=== PATIENT | female | born 2000 | race Caucasian/White ===

== ENCOUNTER 2021-05-24 14:39 | Emergency (ER) | payer OTHER ==
[~2021-05-24] VITALS: Ht 165.1 cm; Wt 120.0 kg
--- NOTE | 2021-05-24 14:53 | PHYS DOC ---
Past History Smoking: Non-smoker Alcohol Use: None Drug Use: None General Adult EDM: Chief Complaint: RECTAL BLEED HPI: HPI: Patient is a 21-year-old female with report of rectal bleeding since January 2021. She has already seen her primary care physician, she had outpatient labs as recently as 5 days ago, she has a normal hemoglobin. She is been referred to outpatient GI, she is supposed to see them tomorrow. She reportedly has not had any imaging studies. She reports history of intermittent constipation and straining, though she had a solid, formed bowel movement earlier today. She notices that she has bright red blood per rectum with wiping and after having a bowel movement. She ported an episode of dizziness earlier today, so her mother thought she should be evaluated. She denies any heavier or worsening bleeding. She denies vaginal bleeding. LMP last week. She describes generalized mid abdominal discomfort. She reports mild nausea, no vomiting. No change in appe tite. She reports chronic urinary urgency and frequency, and she has reportedly been referred to urology for this. She denies dysuria. No acute urinary changes reported today. She reports that she had a cyst removed from her right tube a few years ago. Her primary care doctor has performed a digital rectal exam, could not reportedly feel any mass or hemorrhoid, no reported external hemorrhoids. Review of Systems: Review of Systems: Constitutional: Denies fever or chills Eyes: Denies change in visual acuity HENT: Denies nasal congestion or sore throat Respiratory: Denies cough or shortness of breath Cardiovascular: Denies chest pain or edema GI: Generalized mid abdominal pain. Nausea, no vomiting. Bloody stools. Hi story of constipation, none currently. No diarrhea reported. : Denies dysuria, reports chronic urinary urgency and frequency. No gross hematuria. Musculoskeletal: Denies back pain or joint pain Integument: Denies rash Neurologic: Denies headache, focal weakness or sensory changes Endocrine: Denies polyuria or polydipsia Lymphatic: Denies swollen glands Psychiatric: Anxiety Allergies: Allergies: Allergies Coded Allergies Type Severity Reaction Last Updated Verified No Known Drug Allergies 05/24/21 No Physical Exam: PE: Constitutional: Well developed, well nourished, no acute distress, non-toxic appearance. [] HENT: Normocephalic, atraumatic Eyes: Conjunctiva normal, no discharge. No scleral icterus. Neck: Normal range of motion, no tenderness, supple, no stridor. [] Cardiovascular:Heart rate regular rhythm, +2 radial and +2 posterior tibial pulses bilateral Lungs & Thorax: Bilateral breath sounds clear to auscultation [] Abdomen: Abdomen is obese, soft, nondistended, I am unable to elicit any tenderness to palpation. The patient describes periumbilical tenderness with my exam, though no guarding, rebound, rigidity is noted. No CVA tenderness. No flank abdominal ecchymoses. No palpable masses organomegaly. Skin: Warm, dry, no erythema, no rash. No jaundice. Back: No tenderness, no CVA tenderness. [] Extremities: No tenderness, no cyanosis, no clubbing, ROM intact, no edema. [] Neurologic: Alert and oriented X 3, normal motor function, normal sensory function, no focal deficits noted. [] Psychologic: Shows, cooperative. EKG: EKG: [] Radiology/Procedures: Radiology/Procedures: IMAGING REPORT Signed PATIENT: ANIYA CANTRELL ACCOUNT: [id number] : 2000 LOCATION: ER AGE: 21 SEX: F EXAM STATUS: REG ER ORD. PHYSICIAN: VALERIE EPPERSON DO REASON: LOW ABD AND PELVIC PAIN,TENDER TO TOUCH, RECTAL BLEED-75 OMNI 300 PROCEDURE: CT ABD PELV W/ IV CONTRST ONLY Examination: CT of the abdomen pelvis with IV contrast HISTORY: History of lower abdominal pain, rectal bleeding COMPARISON: None available TECHNIQUE: Axial CT images of abdomen is performed with IV contrast. Coronal and sagittal reformats are performed Exposure: One or more of the following individualized dose reduction techniques were utilized for this examination: 1. Automated exposure control 2. Adjustment of the mA and/or kV according to patient size 3. Use of iterative reconstruction technique FINDINGS: The bibasilar lungs are clear. No evidence of free air identified in the abdomen The liver, spleen, adrenals grossly appears unremarkable. The gallbladder is mildly distended. The stomach is mildly distended. The visualized pancreas grossly appears unremarkable. The small bowel is nondilated. Mild fat stranding identified about the small bowel loops in the lower abdomen. The appendix is normal. Mild thickened appearance of the wall of the transverse colon with minimal surrounding fat stranding. Urinary bladder is mildly distended. The bilateral kidneys enhance symmetrically No evidence of lytic bony destructive lesion IMPRESSION: 1. Mild thickened appearance of the wall of the transverse colon with minimal surrounding fat stranding could be due to nondistention or mild colitis. 2. Mild fat stranding identified about the small bowel loops in the lower abdomen could be due to nondistention or mild enteritis. Electronically signed by: Hari Garcia MD (05/24/2021 3:43 PM) [id number] DICTATED AND SIGNED BY: HARI GARCIA MD DATE: 05/24/21 1539 CC: VALERIE EPPERSON DO; PAIGE CAMARA N ~ Heart Score: C/O Chest Pain: No Risk Factors: Risk Factors: DM, Current or recent (<one month) smoker, HTN, HLP, family history of CAD, obesity. Risk Scores: Score 0 - 3: 2.5% MACE over next 6 weeks - Discharge Home Score 4 - 6: 20.3% MACE over next 6 weeks - Admit for Clinical Observation Score 7 - 10: 72.7% MACE over next 6 weeks - Early Invasive Strategies Course & Med Decision Making: Course & Med Decision Making Pertinent Labs and Imaging studies reviewed. (See chart for details) The patient is given a dose of IV fentanyl for pain. She has a benign, nonsurgical abdominal exam. CT findings are nonspecific. Clinically she does not appear to be ill, she is not anemic, she is hemodynamically stable. I have discussed all of the findings, differential diagnosis and plan of care with the patient. I told her to keep her scheduled appoint with GI tomorrow. There is no questionable transverse colon colitis versus underdistention and then findings of enteritis. This is nonspecific, I did explain to the patient and her mother, in detail. The patient's mother seems upset at my explanation, and I reiterated to the patient and her mother that I did not anticipate finding any acute abnormalities, nor a specific explanation for her symptoms, and that definitive diagnosis and care will require the expertise of her GI physician and primary care physician. There is no indication for emergent admission, invasiv e exams, or transfer. Return precautions are given. Dragon Disclaimer: Dragvanessa Disclaimer: This electronic medical record was generated, in whole or in part, using a voice recognition dictation system. Departure Departure: Impression: Primary Impression: Rectal bleeding Additional Impression: Generalized abdominal pain Disposition: HOME / SELF CARE / HOMELESS Condition: STABLE Referrals: PAIGE CAMARA (PCP) Patient Instructions: Abdominal Pain (Nonspecific), Rectal Bleeding Additional Instructions: Please keep your scheduled appointment to see the GI doctor tomorrow. Your hemoglobin is stable. Your labs are unremarkable. Your CT scan does not demonstrate any acute life-threatening process or surgical process. You will need to see GI and follow their recommendations for further evaluation treatment of your chronic rectal bleeding. Please return to the ER if you experience any acute changes in symptoms, such as more severe or localized abdominal pain, uncontrolled vomiting, dehydration, temperature 100.4 or higher, or for other concerns. Please contact your primary care doctor for follow-up as well. Scripts Ondansetron (ONDANSETRON ODT) 4 Mg Tab.rapdis 1 TAB PO PRN Q6-8HRS for vomiting, #15 TAB Prov: VALERIE EPPERSON DO 05/24/21 VALERIE EPPERSON DO May 24, 2021 14:53
[2021-05-24] MEDS ORDERED: IOHEXOL 300 MG/ML 75 ML VIAL. IV ONE (15:15)
[2021-05-24] MEDS ORDERED: IV NORMAL SALINE 1,000ML 1,000 ML IV ONE (15:15)
[2021-05-24] MEDS ORDERED: IOHEXOL 300 MG/ML 75 ML VIAL. ONE (15:22)
[2021-05-24] MEDS ORDERED: CONTRAST GIVEN. MC PRN (15:30)
[2021-05-24 15:43] LABS: BASO % 1 % (0-3); EOS % 0 % (0-3); HEMATOCRIT 41.4 % (36.0-47.0); HEMOGLOBIN 13.9 g/dL (12.0-15.5); LYMPH % 27 % (24-48); MEAN CORPUSCULAR HEMOGLOBIN 28 pg (25-35); MEAN CORPUSCULAR HGB CONC 34 g/dL (31-37); MEAN CORPUSCULAR VOLUME 84 fL (79-100); MONO # 0.5 x10^3/uL (0.0-1.1); MONO % 7 % (0-9); NEUT # 4.9 x10^3uL (1.8-7.7); NEUT % 65 % (31-73); PLATELET COUNT 395 x10^3/uL (140-400); RED BLOOD COUNT 4.95 x10^6/uL (3.50-5.40); WHITE BLOOD COUNT 7.5 x10^3/uL (4.0-11.0)
--- NOTE | 2021-05-24 15:46 | RAD ---
Examination: CT of the abdomen pelvis with IV contrast HISTORY: History of lower abdominal pain, rectal bleeding COMPARISON: None available TECHNIQUE: Axial CT images of abdomen is performed with IV contrast. Coronal and sagittal reformats a re performed Exposure: One or more of the following individualized dose reduction techniques were utilized for thi s examination: 1. Automated exposure control 2. Adjustment of the mA and/or kV according to patient size 3. Use of iterative reconstruction technique FINDINGS: The bibasilar lungs are clear. No evidence of free air identified in the abdomen The liver, spleen, adrenals grossly appears unremarkable. The gallbladder is mildly distended. The st omach is mildly distended. The visualized pancreas grossly appears unremarkable. The small bowel is n ondilated. Mild fat stranding identified about the small bowel loops in the lower abdomen. The append ix is normal. Mild thickened appearance of the wall of the transverse colon with minimal surrounding fat stranding. Urinary bladder is mildly distended. The bilateral kidneys enhance symmetrically No evidence of lytic bony destructive lesion IMPRESSION: 1. Mild thickened appearance of the wall of the transverse colon with minimal surrounding fat strand ing could be due to nondistention or mild colitis. 2. Mild fat stranding identified about the small bowel loops in the lower abdomen could be due to no ndistention or mild enteritis. Electronically signed by: Hari Garcia MD (05/24/2021 3:43 PM) [id number]
[2021-05-24 15:52] LABS: PREG TEST PT QUAL NEGATIVE (NEG)
[2021-05-24 16:01] LABS: CALCIUM 9.3 mg/dL (8.5-10.1); CREATININE 0.5 mg/dL (0.6-1.0); GFR 157.3; POTASSIUM 3.7 mmol/L (3.5-5.1)
[2021-05-24 16:06] LABS: ALBUMIN 3.6 g/dL (3.4-5.0); ALBUMIN/GLOBULIN RATIO 0.9 (1.0-1.7); TOTAL BILIRUBIN 0.3 mg/dL (0.2-1.0); TOTAL PROTEIN 7.7 g/dL (6.4-8.2)
[2021-05-24 16:25] LABS: BACTERIA,URINE 0 /HPF (0-FEW); CLARITY,URINE CLEAR; COLOR,URINE YELLOW; GLUCOSE,URINE NEG (NEG); NITRITE,URINE NEG (NEG); SQUAMOUS EPITHELIAL CELL,UR OCC /LPF; UROBILINOGEN,URINE 0.2 mg/dL (0.2 mg/dL); WBC,URINE 0 /HPF (0-4)
[2021-05-24] MEDS ORDERED: ONDA4TAB12 PO (16:28)
[2021-05-24 16:40] VITALS: BP 122/67
== END 2021-05-24 16:45 | disposition home or self-care (01) ==
LOC: ER 14:39
DX: K62.5 Hemorrhage of anus and rectum (principal); R10.84 Generalized abdominal pain; K59.00 Constipation, unspecified; R39.15 Urgency of urination
CPT/HCPCS: 36415; 74177; 80053; 81001; 83690; 84703; 85025; 96361; 96374; 99285; J3010; J7030; Q9967

== ENCOUNTER → 2021-06-03 | Outpatient (CLI) | payer OTHER ==
[2021-05-24 16:40] VITALS: BP 122/67
[~2021-06-03] MED LIST: ONDA4TAB12 PO
--- NOTE | 2021-06-03 14:28 | RAD ---
US PELVIS COMPLETE History: Reason: IRREGULAR MENSES; HX OF 13 CM FALLOPIAN CYST REMOVED 1 YR AGO / Spl. Instructions: / History: Comparison: None Technique: Grayscale and color Doppler imaging of the pelvis was performed using transabdominal techn ique. Findings: The uterus measures 7.2 x 2.9 cm. Nabothian cysts noted. The endometrial stripe measures 3 mm. Right ovary measures 3.8 x 2.8 x 2.3 cm. Left ovary measures 3.7 x 2.3 x 2.1 cm. Normal Doppler flow to the ovaries. No adnexal masses are seen. IMPRESSION: 1. No acute pelvic pathology. Electronically signed by: Surinder Lucas DO (06/03/2021 2:26 PM) [id number]
== END ==
LOC: US 10:47
PROVIDERS: ATTEND Obstetrics & Gynecology
DX: N92.0 Excessive and frequent menstruation with regular cycle (principal); N88.8 Other specified noninflammatory disorders of cervix uteri
CPT/HCPCS: 76856

== ENCOUNTER 2021-07-20 20:25 | Emergency (ER) | payer OTHER ==
[~2021-07-20] VITALS: Ht 165.1 cm; Wt 121.0 kg
--- NOTE | 2021-07-20 20:48 | PHYS DOC ---
Past History Additional Past Medical Histor: FALLOPIAN TUBE CYST Past Surgical History: Other Additional Past Surgical Histo: FALLOPIAN TUBE CYST REMOVAL Smoking: Non-smoker Alcohol Use: None Drug Use: None General Adult EDM: Chief Complaint: ABDOMINAL PAIN HPI: HPI: ".. I am haviing bad abdomen pain.. here on the Rt.. maybe a 09/04... .. I ve had ovarian cyst problems before.. did have to have surgery... .. but this was not ... quite the same.... did do some MiraLAX .. it been going on for couple days now.. I did have colon exam.. couple weeks ago.. we don't know the biopsy results.. but they put me on Mesalamine ... because of some inflammation... " Patient is a 21 year old female dependent who presents with right flank and lower mid right abdomen pain past couple days. Patient states nothing has made it better. Did eat a taco tonight. Patient has had a history of constipation so take some MiraLAX. Patient has had history of large ovarian cyst that required surgery on the right. Was able to save the ovary. Patient did have some inflammatory bowel findings and is currently on mesalamine for the inflammation findings on colonoscopy. Patient has had past medical history of respiratory problems with vaginal with low scores 4-7. Required oxygenation. Patient also has had some developmental issues with learning disabilities. History of A th ADHD. 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 No history recent travel. No one in the family has been ill. There is a family history of gallbladder disease. No history of family history of kidney stones. Patient denies any history of sexual activity or risk for . No history of trauma. No history immunosuppression. Did get COVID vaccination x3 and did get flu vaccination. Patient usually does an annual ultrasound evaluation since she had ovarian issues last one was normal May 2000. Patient normally follows with Dr. Dela Cruz. Patient is accompanied with her mother. Review of Systems: Review of Systems: Constitutional: Denies fever or chills Eyes: Denies change in visual acuity HENT: Denies nasal congestion or sore throat Respiratory: Denies cough or shortness of breath Cardiovascular: Denies chest pain or edema GI: Complains of abdominal pain, nausea and right flank pain. Denies, vomiting, bloody stools or diarrhea : Denies dysuria Musculoskeletal: Complains of right flank pain. Integument: Denies rash Neurologic: Denies headache, focal weakness or sensory changes Endocrine: Denies polyuria or polydipsia Lymphatic: Denies swollen glands Psychiatric: Denies depression or anxiety Family History: Family History: Gallbladder disease Current Medications: Current Meds: See nursing for home meds Allergies: Allergies: Allergies Coded Allergies Type Severity Reaction Last Updated Verified No Known Drug Allergies 05/24/21 No Physical Exam: PE: Constitutional: Moderate acute distress, non-toxic appearance. [] HENT: Normocephalic, atraumatic, bilateral external ears normal, oropharynx moist, no oral exudates, nose normal. [] Eyes: PERRLA, EOMI, conjunctiva normal, no discharge. [] Neck: Normal range of motion, no tenderness, supple, no stridor. [] Cardiovascular:Heart rate regular rhythm, no murmur [] Lungs & Thorax: Bilateral breath sounds equal apex auscultation []. No rash noted on right flank Abdomen: Bowel sounds hyperactive, soft, right mid and lower flank and abdomen tenderness, no masses, no pulsatile masses. Mild localization to right mid with rebound. Skin: Warm, dry, no erythema, no rash. [] Back: No tenderness, mild CVA tenderness on percussion Extremities: No tenderness, no cyanosis, no clubbing, ROM intact, no edema. No obvious psoas sign. Patient able to jump up and down without significant pain Neurologic: Alert and oriented X 3, moves all extremities on request, has distal sensory, no focal deficits noted. [] Psychologic: Affect anxious, judgement normal, mood normal. [] EKG: EKG: [] Radiology/Procedures: Radiology/Procedures: [][address], Without Contrast: History: Reason: Rt. abd. pain., hx Ovairan cyst, colitis / Spl. Instructions: / History: Comparison: None. Procedure: Axial images are obtained of the abdomen and pelvis, without IV but with oral contrast. Oral Contrast: Yes Findings: Evaluation of solid organs is limited without contrast. The gallbladder is collapsed and not well evaluated. The appendix is normal. There is numerous mildly enlarged mesenteric lymph nodes seen previously. Liver: Normal. Spleen: Normal. Pancreas: Normal. Adrenal Glands: Normal. Kidneys: Normal. There is no free air or free fluid. There is no lymphadenopathy. The urinary bladder appears normal. There is no pericolonic inflammation identified. Impression: 1. Mild stable mesenteric lymphadenopathy likely incidental. 2. Stable appearance of the abdomen and pelvis. End impression PQRS Compliance Statement: One or more of the following individualized dose reduction techniques were utilized for this examination: 1. Automated exposure control 2. Adjustment of the mA and/or kV according to patient size 3. Use of iterative reconstruction technique Electronically signed by: Hugh Campos III, MD (07/21/2021 12:10 AM) [facility] IMAGING REPORT Signed PATIENT: ANIYA CANTRELL ACCOUNT: [id number] : 2000 LOCATION: ER AGE: 21 SEX: F EXAM STATUS: REG ER ORD. PHYSICIAN: MALDONADO ARGUETA MD REASON: Rt. abd. , flank pain- hx cyst, /surgery PROCEDURE: ACUTE ABDOMEN SERIES EXAMINATION: XR ABDOMEN COMP ACUTE CLINICAL HISTORY: Right abdominal pain, flank pain- hx cyst, /surgery EXAM DATE/TIME: 07/20/2021 9:22 PM COMPARISON: None FINDINGS: Lines, Tubes, and Devices: None. Cardiomediastinal Silhouette: Within normal limits. Lungs and Pleura: No evidence of focal airspace consolidation, pleural effusion, or pneumothorax. Bones and Soft Tissues: No acute osseous abnormality. Abdomen: Nonobstructive bowel gas pattern. No evidence of pneumoperitoneum or suspicious abdominal calcifications. IMPRESSION: Nonobstructive bowel gas pattern. No evidence of acute cardiopulmonary abnormality. Electronically signed by: Ildefonso Guillen DO (07/20/2021 10:40 PM) [facility] DICTATED AND SIGNED BY: ILDEFONSO GUILLEN DO DATE: 07/20/21 2239 CC: PAIGE DELA CRUZ; MALDONADO ARGUETA MD ~ Heart Score: C/O Chest Pain: N/A Risk Factors: Risk Factors: DM, Current or recent (<one month) smoker, HTN, HLP, family history of CAD, obesity. Risk Scores: Score 0 - 3: 2.5% MACE over next 6 weeks - Discharge Home Score 4 - 6: 20.3% MACE over next 6 weeks - Admit for Clinical Observation Score 7 - 10: 72.7% MACE over next 6 weeks - Early Invasive Strategies Course & Med Decision Making: Course & Med Decision Making Pertinent Labs and Imaging studies reviewed. (See chart for details) Patient stay on a clear fluid diet only for the next 2 days. No solids. No milk products. Clear fluids only must allow bowel rest. Take Pepcid 20 mg twice a day. Take Zofran for nausea and vomiting. Continue the mesalamine as directed by GI. Consider EGD. Consider biliary colic work-up. Follow-up primary and return if any concerns. Impression: 1. Abdomen Pain 2. Mild elevation Lipase 51 3. Mesenteric adenitis 4. History of inflammatory bowel-found on last colonoscopy [] Dragon Disclaimer: Dragon Disclaimer: This electronic medical record was generated, in whole or in part, using a voice recognition dictation system. Departure Departure: Referrals: PAIGE DELA CRUZ (PCP) Scripts Famotidine (PEPCID) 20 Mg Tablet 20 MG PO BID for GERD for 30 Days, #60 TAB Prov: MALDONADO ARGUETA MD 07/21/21 Ondansetron (ONDANSETRON ODT) 4 Mg Tab.rapdis 4 MG PO QIDPRN PRN for NAUSEA/VOMITING, #30 TAB Prov: MALDONADO ARGUETA MD 07/21/21 Dragon Disclaimer This chart was dictated in whole or in part using Voice Recognition software in a busy, high-work load, and often noisy Emergency Department environment. It may contain unintended and wholly unrecognized errors or omissions. MALDONADO ARGUETA MD July 20, 2021 20:48
[2021-07-20] MEDS ORDERED: ONDANSETRON PF 4 MG/2 ML VIAL. IVP ONE (21:15)
[2021-07-20] MEDS ORDERED: IV RINGERS SOLUTION,LACTATED 1,000 ML IV SCH (21:15)
[2021-07-20] MEDS ORDERED: KETOROLAC 30 MG/ML VIAL. IVP ONE (21:15)
[2021-07-20] MEDS ORDERED: FAMOTIDINE 20 MG/2 ML VIAL IVP ONE (21:15)
[2021-07-20 21:49] LABS: BASO % 1 % (0-3); EOS # 0.1 x10^3/uL (0.0-0.7); EOS % 1 % (0-3); HEMATOCRIT 40.7 % (36.0-47.0); HEMOGLOBIN 13.6 g/dL (12.0-15.5); LYMPH % 26 % (24-48); MEAN CORPUSCULAR HEMOGLOBIN 28 pg (25-35); MEAN CORPUSCULAR HGB CONC 33 g/dL (31-37); MEAN CORPUSCULAR VOLUME 84 fL (79-100); MONO # 0.5 x10^3/uL (0.0-1.1); MONO % 6 % (0-9); NEUT # 5.1 x10^3uL (1.8-7.7); NEUT % 66 % (31-73); PLATELET COUNT 412 x10^3/uL (140-400); RED BLOOD COUNT 4.86 x10^6/uL (3.50-5.40); RED CELL DISTRIBUTION WIDTH 14.7 % (11.5-14.5); WHITE BLOOD COUNT 7.7 x10^3/uL (4.0-11.0)
[2021-07-20 21:52] LABS: BARBITURATES NEG (NEG); BENZODIAZEPINES NEG (NEG); CANNABINOIDS NEG (NEG); COCAINE NEG (NEG); METHADONE NEG (NEG); OPIATES NEG (NEG); PHENCYCLIDINE NEG (NEG)
[2021-07-20 21:56] LABS: CALCIUM 9.4 mg/dL (8.5-10.1); CREATININE 0.8 mg/dL (0.6-1.0); GFR 91.4; POTASSIUM 3.6 mmol/L (3.5-5.1)
[2021-07-20 22:01] LABS: AMPHETAMINE/METHAMPHETAMINE NEG (NEG)
[2021-07-20 22:02] LABS: ALBUMIN 3.5 g/dL (3.4-5.0); DIRECT BILIRUBIN 0.1 mg/dL (0.0-0.2); TOTAL BILIRUBIN 0.4 mg/dL (0.2-1.0); TOTAL PROTEIN 7.5 g/dL (6.4-8.2)
[2021-07-20 22:07] LABS: CLARITY,URINE CLEAR; COLOR,URINE YELLOW; GLUCOSE,URINE NEG (NEG)
[2021-07-20 22:08] LABS: BACTERIA,URINE 0 /HPF (0-FEW); NITRITE,URINE NEG (NEG); RBC,URINE OCC /HPF (0-2); SQUAMOUS EPITHELIAL CELL,UR FEW /LPF; UROBILINOGEN,URINE 0.2 mg/dL (0.2 mg/dL); WBC,URINE 0 /HPF (0-4)
[2021-07-20] MEDS ORDERED: IOHEXOL 240 MG/ML 50ML VIAL. ONE (22:37)
--- NOTE | 2021-07-20 22:43 | RAD ---
EXAMINATION: XR ABDOMEN COMP ACUTE CLINICAL HISTORY: Right abdominal pain, flank pain- hx cyst, /surgery EXAM DATE/TIME: 07/20/2021 9:22 PM COMPARISON: None FINDINGS: Lines, Tubes, and Devices: None. Cardiomediastinal Silhouette: Within normal limits. Lungs and Pleura: No evidence of focal airspace consolidation, pleural effusion, or pneumothorax. Bones and Soft Tissues: No acute osseous abnormality. Abdomen: Nonobstructive bowel gas pattern. No evidence of pneumoperitoneum or suspicious abdominal ca lcifications. IMPRESSION: Nonobstructive bowel gas pattern. No evidence of acute cardiopulmonary abnormality. Electronically signed by: Ildefonso Forbes DO (07/20/2021 10:40 PM) [facility]
--- NOTE | 2021-07-21 00:13 | RAD ---
Abdominal and Pelvis CT, Without Contrast: History: Reason: Rt. abd. pain., hx Ovairan cyst, colitis / Spl. Instructions: / History: Comparison: None. Procedure: Axial images are obtained of the abdomen and pelvis, without IV but with oral contrast. Oral Contrast: Yes Findings: Evaluation of solid organs is limited without contrast. The gallbladder is collapsed and not well evaluated. The appendix is normal. There is numerous mildly enlarged mesenteric lymph nodes seen previously. Liver: Normal. Spleen: Normal. Pancreas: Normal. Adrenal Glands: Normal. Kidneys: Normal. There is no free air or free fluid. There is no lymphadenopathy. The urinary bladder appears normal. There is no pericolonic inflammation identified. Impression: 1. Mild stable mesenteric lymphadenopathy likely incidental. 2. Stable appearance of the abdomen and pelvis. End impression PQRS Compliance Statement: One or more of the following individualized dose reduction techniques were utilized for this examinat ion: 1. Automated exposure control 2. Adjustment of the mA and/or kV according to patient size 3. Use of iterative reconstruction technique Electronically signed by: Hugh Campos III, MD (07/21/2021 12:10 AM) [facility]
[2021-07-21 02:28] VITALS: BP 128/73
[2021-07-21] MEDS ORDERED: FAMO-63 PO (02:37)
[2021-07-21] MEDS ORDERED: ONDA4TAB12 PO (02:37)
== END 2021-07-21 02:51 | disposition home or self-care (01) ==
LOC: ER 20:25
DX: I88.0 Nonspecific mesenteric lymphadenitis (principal); R74.8 Abnormal levels of other serum enzymes
CPT/HCPCS: 36415; 74022; 74176; 80048; 80076; 80307; 81001; 81025; 82550; 83690; 85025; 85610; 85730; 96361; 96374; 96375; 99285; J1885; J2405; J3490; J7120